=== PATIENT | female | born 1985 | race Caucasian/White ===

== ENCOUNTER → 2017-04-18 | Outpatient (CLI) | payer OTHER ==
--- NOTE | 2017-04-18 16:39 | RADIOLOGY IMAGING REPORT ---
FACILITY: [facility] [place] PATIENT NAME: Lluvia Mcmillan : 1985 MR: [id number] V: [id number] EXAM DATE: ORDERING PHYSICIAN: LUPE HAY TECHNOLOGIST: Location: [facility] [place] Patient: Lluvia Mcmillan : 1985 Visit/Account:[id number] Date of Sevice: 04/18/2017 Technique: WRIST LEFT MIN 3 VIEW HISTORY: Left wrist injury Comparison studies: None FINDINGS: There is no acute fracture. The alignment of the left wrist is maintained. Mild soft tiss ue swelling surrounds the wrist. IMPRESSION: 1. No acute osseous process. Report Dictated By: Brian Hoyt DO at 04/18/2017 4:32 PM Report E-Signed By: Brian Hoyt DO at 04/18/2017 4:35 PM WSN:[id number]
== END ==
LOC: LAB 16:03
PROVIDERS: ATTEND Physician Assistant
DX: M25.432 Effusion, left wrist (principal)